=== PATIENT | male | born 1975 | race Caucasian/White ===

== ENCOUNTER 2017-11-04 15:58 | Emergency (ER) | payer MEDICAID ==
[2017-11-04 16:17] VITALS: BP 147/86
--- NOTE | 2017-11-04 16:47 | ED Physician Documentation ---
History of Present Illness - Stated complaint Stated Complaint: L KNEE PAIN - Chief complaint Chief Complaint: Ext Problem - Additonal information Additional information: hx from pt healthy 42 male walking a week ago and knee popped and gave out sig swelling after feels like it is shifting and unstable Review of Systems Musculoskeletal: reports: Pain with weight bearing PD PAST MEDICAL HISTORY - Past Medical History Past Medical History: No Cardiovascular: None Respiratory: None Neuro: Other Endocrine/Autoimmune: None Psych: Depression, Anxiety, Panic attacks, Claustrophobia Musculoskeletal: Osteoarthritis, Chronic back pain - Past Surgical History Past Surgical History: Yes HEENT: Tonsil/Adenoidectomy - Present Medications Home Medications: Ambulatory Orders Medication Instructions Recorded Confirmed No Known Home Medications [No 11/04/17 11/04/17 Known Home Medications] - Allergies Allergies/Adverse Reactions: Allergies Allergy/AdvReac Type Severity Reaction Status Date / Time No Known Drug Allergies Allergy Verified 12/09/14 13:07 - Social History Does the pt smoke?: Yes Smoking Status: Current every day smoker Does the pt drink ETOH?: No Does the pt have substance abuse?: No - Immunizations Immunizations are current?: No - POLST Patient has POLST: No PD ED PE NORMAL - Extremities Extremities: Other (L knee small effusion, no quad or patellar tendon TTP, neg patellar grisnf, midl posterior lat jt line TTP, no MCL LCL laxity, + ACL laxity (mild) no pop or catch with meniscal testing, MSV intact) Results - Vitals Vitals: Vital Signs - 24 hr 11/04/17 16:15 Temperature 36.4 C L Heart Rate 78 Respiratory 18 Rate Blood Pressure 147/86 H O2 Saturation 98 Oxygen O2 Source Room air - Rads (name of study) knee Radiology: See rad report (neg) Departure - Departure Disposition: Home, Self Care Clinical Impression: Knee internal derangement Qualifiers: Laterality: left Qualified Code(s): M23.92 - Unspecified internal derangement of left knee Condition: Good Instructions: ED Knee Injury Cruciate Ligament Follow-Up: [facility] [Provider Group] Comments: The xray is fine. But as i explained I am worried you may have torn the ACL (anterior cruciate ligament) Wear the knee immobilizer to prevent your knee from shifting and worsening the damage Call orthopedics to schedule follow up and perhaps further imaging such as MRI Motrin tylenol and ice as needed for the pain Forms: Activity restrictions
--- NOTE | 2017-11-04 17:20 | XRAY Preliminary Report ---
Exam: XR KNEE 3 VIEW LT IMPRESSION: Normal knee radiography. [facility] SITE ID: [id number]
--- NOTE | 2017-11-04 17:22 | XRAY Report ---
EXAM: LEFT KNEE RADIOGRAPHY EXAM DATE: 11/04/2017 05:08 PM. CLINICAL HISTORY: Knee pain ACL laxity. COMPARISON: None. TECHNIQUE: 3 views. FINDINGS: Bones: Normal. No fractures or bone lesions. Joints: Normal. No effusion. No subluxations. Soft Tissues: Normal. No soft tissue swelling. IMPRESSION: Normal knee radiography. [facility] Referring Provider Line: [phone] SITE ID: [id number]
== END 2017-11-04 17:57 | disposition home or self-care (01) ==
LOC: ED 15:58
DX: M23.92 Unspecified internal derangement of left knee (principal); F17.200 Nicotine dependence, unspecified, uncomplicated
CPT/HCPCS: 99283